=== PATIENT | male | born 1990 | race Caucasian/White ===

== ENCOUNTER 2019-08-18 13:42 | Emergency (ER) | payer OTHER ==
[~2019-08-18] VITALS: Ht 177.8 cm; Wt 96.2 kg
== END 2019-08-18 15:05 | disposition home or self-care (01) ==
LOC: ER 13:42
DX: K29.50 Unspecified chronic gastritis without bleeding (principal)

== ENCOUNTER 2020-01-05 08:58 | Outpatient (CLI) | payer OTHER | END 2020-01-05 09:22 | disposition home or self-care (01) | LOC: RAD 08:58 → MAMO-SONO 09:15 → RAD 09:22 | PROVIDERS: ATTEND Internal Medicine Gastroenterology | DX: R10.13 Epigastric pain (principal) ==